=== PATIENT | female | born 2000 | race American Indian/Alaskan Native ===

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

== ENCOUNTER 2018-03-11 12:15 | Emergency (ER) | payer SELFPAY ==
[2018-03-11 13:24] LABS: Urine Blood 3+ (NEG); Urine Glucose NEGATIVE (NEG); Urine Protein NEGATIVE (NEG); Urine Specific Gravity 1.015 (1.005-1.030)
--- NOTE | 2018-03-11 13:44 | ER ---
Nurse's Notes [facility] Name: Masha Martinez Age: 17 yrs Sex: Female : 2000 Arrival Date: 03/11/2018 Time: 12:18 Bed 30 Private MD: Diagnosis: Other abnormal uterine and vaginal bleeding Presentation: 03/11 12:19 Presenting complaint: Patient states: on Saturday, i started spotting, yesterday it was a hj little heavier, reports abd pain; LMP- February 12, 2018; denies nausea and vomiting;. Transition of care: patient was not received from another setting of care. Onset of symptoms was March 11, 2018. Risk Assessment: Do you want to hurt yourself or someone else? Patient reports no desire to harm self or others. Initial Sepsis Screen: Does the patient meet any 2 criteria? No. Patient's initial sepsis screen is negative. Does the patient have a suspected source of infection? No. Patient's initial sepsis screen is negative. Care prior to arrival: None. 12:19 Method Of Arrival: Ambulatory 12:19 Acuity: SILVER 3 hj Triage Assessment: 12:21 General: Appears in no apparent distress. uncomfortable, Behavior is calm, cooperative, hj appropriate for age. Pain: Complains of pain in pelvis Pain currently is 8 out of 10 on a pain scale. : Reports vaginal bleeding that is with clots, light flow, pinkish discharge. 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 - Social history:: Smoking status: Patient/guardian denies using tobacco, Patient/guardian denies using alcohol. - Ebola Screening: : Patient negative for fever greater than or equal to 101.5 degrees Fahrenheit, and additional compatible Ebola Virus Disease symptoms Patient denies exposure to infectious person Patient denies travel to an Ebola-affected area in the 21 days before illness onset. Screenin:22 Abuse screen: Denies threats or abuse. Denies injuries from another. Nutritional hj screening: No deficits noted. Tuberculosis screening: No symptoms or risk factors identified. Fall Risk None identified. Assessment: 12:22 : hj 13:21 General: Appears in no apparent distress. comfortable, well groomed, well developed, tl3 well nourished, Behavior is calm, cooperative, appropriate for age. Pain: Denies pain. Neuro: Level of Consciousness is awake, alert, obeys commands, Oriented to person, place, time, situation, Appropriate for age. Cardiovascular: Patient's skin is warm and dry. Respiratory: Airway is patent Respiratory effort is even, unlabored, Respiratory pattern is regular, symmetrical, Breath sounds are clear bilaterally. GI: No deficits noted. No signs and/or symptoms were reported involving the gastrointestinal system. : Reports vaginal bleeding that is spotty, since Saturday. 13:21 EENT: No deficits noted. No signs and/or symptoms were reported regarding the EENT tl3 system. Derm: No deficits noted. No signs and/or symptoms reported regarding the dermatologic system. Musculoskeletal: No deficits noted. No signs and/or symptoms reported regarding the musculoskeletal system. 13:49 Reassessment: Patient appears in no apparent distress at this time. No changes from tl3 previously documented assessment. Patient and/or family updated on plan of care and expected duration. Pain level reassessed. Patient is alert, oriented x 3, equal unlabored respirations, skin warm/dry/pink. 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 Vital Signs: 12:22 BP 118 / 93; Pulse 85; Resp 18; Temp 98.4(TE); Pulse Ox 100% on R/A; Weight 66.68 kg; hj Height 5 ft. 0 in. (152.40 cm); Pain 8/10; 13:49 BP 120 / 80; Pulse 82; Resp 18; Pulse Ox 100% on R/A; tl3 12:22 Body Mass Index 28.71 (66.68 kg, 152.40 cm) ED Course: 12:18 Patient arrived in ED. hj 12:20 Triage completed. hj 12:22 Arm band placed on right wrist. hj 12:24 Patient has correct armband on for positive identification. Placed in gown. Bed in low hj position. Call light in reach. Side rails up X 1. 12:55 Elva Aguilar RN is Primary Nurse. tl3 12:58 A[facility] Baez [facility]. pm1 12:58 Darian Brownlee MD is Attending Physician. pm1 13:21 No provider procedures requiring assistance completed. Patient did not have IV access tl3 during this emergency room visit. Administered Medications: No medications were administered Outcome: 13:43 Discharge ordered by MD. pm1 13:49 Discharged to home ambulatory. tl3 13:49 Condition: good 13:49 Discharge instructions given to patient, Instructed on discharge instructions, follow up and referral plans. Demonstrated understanding of instructions, follow-up care. 13:51 Patient left the ED. tl3 Signatures: Kaveh Carpenter RN RN Aroldo Rutherford NP NETWORK RELAY TESTER pm1 Elva Aguilar RN RN tl3 Corrections: (The following items were deleted from the chart) 12:24 12:22 Pulse 85bpm; Resp 18bpm; Pulse Ox 100% RA; Temp 98.4F Temporal; 66.68 kg; Height hj 5 ft. 0 in.; BMI: 28.7; Pain 8/10; hj
--- NOTE | 2018-03-11 13:44 | EDPHYS ---
Physician Documentation [facility] Name: Masha Martinez Age: 17 yrs Sex: Female : 2000 Arrival Date: 03/11/2018 Time: 12:18 Bed 30 Private MD: ED Physician Darian Brownlee HPI: 03/11 13:42 This 17 yrs old Other Female presents to ER via Ambulatory with complaints of Vaginal pm1 Bleeding. 13:42 The patient presents with vaginal bleeding that is very light bleeding for the past 5 pm1 days that has not required the use of pads or tampons. Onset: The symptoms/episode began/occurred 5 day(s) ago. Modifying factors: The symptoms are alleviated by nothing, the symptoms are aggravated by nothing. Associated signs and symptoms: Pertinent negatives: diarrhea, dysuria, fever, nausea, vomiting. Severity of symptoms: in the emergency department the symptoms are unchanged. The patient is sexually active, does not use protection during intercourse, Patient with unprotected intercourse about 1 week ago and is coming to the emergency department with a request for STD testing. The patient has not experienced similar symptoms in the past. The patient has not recently seen a physician. 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 - Social history:: Smoking status: Patient/guardian denies using tobacco, Patient/guardian denies using alcohol. - Ebola Screening: : Patient negative for fever greater than or equal to 101.5 degrees Fahrenheit, and additional compatible Ebola Virus Disease symptoms Patient denies exposure to infectious person Patient denies travel to an Ebola-affected area in the 21 days before illness onset. ROS: 13:42 Positive for vaginal bleeding. pm1 13:42 Constitutional: Negative for fever, chills, and weight loss, Eyes: Negative for injury, pain, redness, and discharge, ENT: Negative for injury, pain, and discharge, Neck: Negative for injury, pain, and swelling, Cardiovascular: Negative for chest pain, palpitations, and edema, Respiratory: Negative for shortness of breath, cough, wheezing, and pleuritic chest pain, Abdomen/GI: Negative for abdominal pain, nausea, vomiting, diarrhea, and constipation, Back: Negative for injury and pain, MS/Extremity: Negative for injury and deformity, Skin: Negative for injury, rash, and discoloration. 13:42 Neuro: Negative for headache, weakness, numbness, tingling, and seizure. Exam: 13:42 Constitutional: This is a well developed, well nourished patient who is awake, alert, pm1 and in no acute distress. Head/Face: Normocephalic, atraumatic. Eyes: Pupils equal round and reactive to light, extra-ocular motions intact. Lids and lashes normal. Conjunctiva and sclera are non-icteric and not injected. Cornea within normal limits. Periorbital areas with no swelling, redness, or edema. ENT: Nares patent. No nasal discharge, no septal abnormalities noted. Tympanic membranes are normal and external auditory canals are clear. Oropharynx with no redness, swelling, or masses, exudates, or evidence of obstruction, uvula midline. Mucous membranes moist. Neck: Trachea midline, no thyromegaly or masses palpated, and no cervical lymphadenopathy. Supple, full range of motion without nuchal rigidity, or vertebral point tenderness. No Meningismus. Chest/axilla: Normal chest wall appearance and motion. Nontender with no deformity. No lesions are appreciated. Cardiovascular: Regular rate and rhythm with a normal S1 and S2. No gallops, murmurs, or rubs. No pulse deficits. Respiratory: Lungs have equal breath sounds bilaterally, clear to auscultation and percussion. No rales, rhonchi or wheezes noted. No increased work of breathing, no retractions or nasal flaring. Abdomen/GI: Soft, non-tender, with normal bowel sounds. No distension or tympany. No guarding or rebound. No evidence of tenderness throughout. Back: No spinal tenderness. No costovertebral tenderness. Full range of motion. Skin: Warm, dry with normal turgor. Normal color with no rashes, no lesions, and no evidence of cellulitis. MS/ Extremity: Pulses equal, no cyanosis. Neurovascular intact. Full, normal range of motion. 13:42 Neuro: Orientation: is normal, Motor: moves all fours. Vital Signs: 12:22 BP 118 / 93; Pulse 85; Resp 18; Temp 98.4(TE); Pulse Ox 100% on R/A; Weight 66.68 kg; hj Height 5 ft. 0 in. (152.40 cm); Pain 8/10; 13:49 BP 120 / 80; Pulse 82; Resp 18; Pulse Ox 100% on R/A; tl3 12:22 Body Mass Index 28.71 (66.68 kg, 152.40 cm) MDM: 12:58 Patient medically screened. pm1 13:42 Data reviewed: vital signs. Data interpreted: Pulse oximetry: on room air is 100 %. pm1 Interpretation: normal. 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 13:42 Counseling: I had a detailed discussion with the patient and/or guardian regarding: the pm1 historical points, exam findings, and any diagnostic results supporting the discharge/admit diagnosis, lab results, the need for outpatient follow up, to return to the emergency department if symptoms worsen or persist or if there are any questions or concerns that arise at home. 03/11 13:05 Order name: Urine Dipstick--Ancillary (enter results); Complete Time: 13:28 03/11 13:05 Order name: Urine --Ancillary (enter results); Complete Time: 13:28 03/11 12:24 Order name: Urine Dipstick-Ancillary (obtain specimen) 03/11 12:24 Order name: Urine Test (obtain specimen) 03/11 13:28 Order name: IV Saline Lock pm1 03/11 13:28 Order name: Labs collected and sent pm1 Administered Medications: No medications were administered Disposition: 03/12 06:55 Co-signature as Attending Physician, Darian Brownlee MD I agree with the assessment and jarad plan of care. Disposition: 03/11/18 13:43 Discharged to Home. Impression: Other abnormal uterine and vaginal bleeding. - Condition is Stable. - Discharge Instructions: Abnormal Uterine Bleeding. - Medication Reconciliation Form, Thank You Letter, Work release form form. - Follow up: Emergency Department; When: As needed; Reason: Worsening of condition. Follow up: Private Physician; When: 2 - 3 days; Reason: Recheck today's complaints, Continuance of care, Re-evaluation by your physician. - Problem is new. - Symptoms have improved. Signatures: Dispatcher [employer] EDMS Darian Brownlee MD MD cha Joaquin, Henry RN RN hj Aroldo Baez, FINANCE ADVISOR FINANCE ADVISOR pm1 Elva Aguilar, SENAIT RN tl3 Corrections: (The following items were deleted from the chart) 03/11 13:51 13:43 03/11/2018 13:43 Discharged to Home. Impression: Other abnormal uterine and tl3 vaginal bleeding. Condition is Stable. Forms are Medication Reconciliation Form, Thank You Letter, Antibiotic Education, Prescription Opioid Use. Follow up: Emergency Department; When: As needed; Reason: Worsening of condition. Follow up: Private Physician; When: 2 - 3 days; Reason: Recheck today's complaints, Continuance of care, Re-evaluation by your physician. Problem is new. Symptoms have improved. pm1
[2018-03-11 13:57] VITALS: TEMP 98.4; O2SAT 100
[2018-03-11 13:58] VITALS: BP 120/80
== END 2018-03-11 13:51 | disposition home or self-care (01) ==
LOC: ER 12:15
DX: N93.8 Other specified abnormal uterine and vaginal bleeding (principal)
CPT/HCPCS: 81003; 81025; 99281

== ENCOUNTER 2018-07-18 13:40 | Emergency (ER) | payer SELFPAY ==
--- OUTSIDE RECORDS SUMMARY | 2018-07-18 13:42 | XMS REPORT ---
:2000 [facility] Address [address] [place] [address] Dr. Gutierrez [address] [place] [address] Care Team Providers Name Role Phone Unavailable Unavailable Unavailable Problems This patient has no known problems. Allergies, Adverse Reactions, Alerts This patient has no known allergies or adverse reactions. Medications This patient has no known medications.
[2018-07-18 15:10] LABS: Urine Blood 1+ (NEG); Urine Glucose NEGATIVE (NEG); Urine Protein NEGATIVE (NEG); Urine Specific Gravity 1.015 (1.005-1.030); Urine pH 7.5 (5.0-7.0)
[2018-07-18 15:20] LABS: Urine Specific Gravity 1.015 (1.005-1.030)
--- NOTE | 2018-07-18 16:02 | RAD REPORT ---
EXAM DESCRIPTION: US - Transvaginal Study Probe - 07/18/2018 3:45 pm CLINICAL HISTORY: Pelvic pain COMPARISON: Ultrasound March 2017 TECHNIQUE: Endovaginal sonography was performed. FINDINGS: Both ovaries are identified. Small follicles are seen with no dominant solid or cystic ova marbella or adnexal finding. Doppler evaluation shows good blood flow within the ovaries. No fluid or blo od in the cul-de-sac. No fallopian tube dilatation. Endometrium is up to 8 mm in thickness with no endometrial mass, polyp or abnormal fluid collection i dentifiable. No myometrial mass. Uterus is 7.8 x 3.8 x 5.2 cm with retroflexed configuration. IMPRESSION: Endovaginal pelvic ultrasound as detailed shows no significant or suspicious finding.
--- NOTE | 2018-07-18 16:37 | EDPHYS ---
Physician Documentation [facility] Name: Masha Martinez Age: 18 yrs Sex: Female : 2000 Arrival Date: 07/18/2018 Time: 13:43 Bed 24 Private MD: ED Physician Lex Kaur HPI: 07/18 16:34 This 18 yrs old Other Female presents to ER via Ambulatory with complaints of Low kb Abdominal Pain. 16:34 The patient presents with abdominal pain in the lower abdomen. Onset: The kb symptoms/episode began/occurred 1 month(s) ago. The symptoms do not radiate. Associated signs and symptoms: none. The symptoms are described as achy, constant, tightness. Modifying factors: The symptoms are alleviated by nothing, the symptoms are aggravated by nothing. Severity of pain: At its worst the pain was mild moderate in the emergency department the pain is unchanged. The patient has not experienced similar symptoms in the past. The patient has not recently seen a physician. "The area where my uterus is has been hurting for a month.". Historical: - Allergies: 13:46 No Known Allergies; sv - PMHx: 13:46 None; sv - PSHx: 13:46 None; sv - Immunization history:: Flu vaccine is not up to date. - Social history:: Smoking status: Patient/guardian denies using tobacco. - Ebola Screening: : No symptoms or risks identified at this time. ROS: 16:35 Constitutional: Negative for fever, chills, and weight loss, ENT: Negative for injury, kb pain, and discharge, Neck: Negative for injury, pain, and swelling, Cardiovascular: Negative for chest pain, palpitations, and edema, Respiratory: Negative for shortness of breath, cough, wheezing, and pleuritic chest pain, Back: Negative for injury and pain, : Negative for injury, bleeding, discharge, and swelling, MS/Extremity: Negative for injury and deformity, Skin: Negative for injury, rash, and discoloration, Neuro: Negative for headache, weakness, numbness, tingling, and seizure. 16:35 Abdomen/GI: Positive for abdominal pain. Exam: 16:36 Constitutional: This is a well developed, well nourished patient who is awake, alert, kb and in no acute distress. Head/Face: Normocephalic, atraumatic. ENT: Nares patent. No nasal discharge, no septal abnormalities noted. Tympanic membranes are normal and external auditory canals are clear. Oropharynx with no redness, swelling, or masses, exudates, or evidence of obstruction, uvula midline. Mucous membranes moist. Neck: Trachea midline, no thyromegaly or masses palpated, and no cervical lymphadenopathy. Supple, full range of motion without nuchal rigidity, or vertebral point tenderness. No Meningismus. Chest/axilla: Normal chest wall appearance and motion. Nontender with no deformity. No lesions are appreciated. Cardiovascular: Regular rate and rhythm with a normal S1 and S2. No gallops, murmurs, or rubs. Normal PMI, no JVD. No pulse deficits. Respiratory: Lungs have equal breath sounds bilaterally, clear to auscultation and percussion. No rales, rhonchi or wheezes noted. No increased work of breathing, no retractions or nasal flaring. Back: No spinal tenderness. No costovertebral tenderness. Full range of motion. Skin: Warm, dry with normal turgor. Normal color with no rashes, no lesions, and no evidence of cellulitis. MS/ Extremity: Pulses equal, no cyanosis. Neurovascular intact. Full, normal range of motion. Neuro: Awake and alert, GCS 15, oriented to person, place, time, and situation. Cranial nerves II-XII grossly intact. Motor strength 5/5 in all extremities. Sensory grossly intact. Cerebellar exam normal. Normal gait. 16:36 Abdomen/GI: Inspection: abdomen appears normal, Bowel sounds: normal, in all quadrants, Palpation: soft, in all quadrants, mild abdominal tenderness, in the right lower quadrant and left lower quadrant, moderate abdominal tenderness, in the suprapubic area. Vital Signs: 13:46 BP 141 / 85; Pulse 95; Resp 18; Temp 98.4; Pulse Ox 100% ; Weight 68.04 kg; Height 5 sv ft. 0 in. (152.40 cm); Pain 7/10; 16:48 BP 113 / 84; Pulse 79; Resp 18; Pulse Ox 100% on R/A; tl3 13:46 Body Mass Index 29.29 (68.04 kg, 152.40 cm) sv MDM: 15:04 Patient medically screened. kb 16:35 Data reviewed: vital signs, nurses notes. Data interpreted: Pulse oximetry: on room air kb is 100 %. Interpretation: normal. Counseling: I had a detailed discussion with the patient and/or guardian regarding: the historical points, exam findings, and any diagnostic results supporting the discharge/admit diagnosis, lab results, radiology results, the need for outpatient follow up, an OB/Gyne specialist, to return to the emergency department if symptoms worsen or persist or if there are any questions or concerns that arise at home. 07/18 14:52 Order name: Urine Dipstick-Ancillary; Complete Time: 15:15 EDMA 07/18 14:52 Order name: Urine --Ancillary; Complete Time: 15:29 EDMA 07/18 15:15 Order name: US Transvaginal Study (Probe); Complete Time: 16:13 kb Administered Medications: No medications were administered Disposition: 17:48 Co-signature as Attending Physician, Lex Kaur MD I agree with the assessment and rn plan of care. Disposition: 07/18/18 16:36 Discharged to Home. Impression: Abdominal and pelvic pain. - Condition is Stable. - Discharge Instructions: Pelvic Pain, Female, [id number], Abdominal Pain, Adult, [id number]. - Medication Reconciliation Form, Thank You Letter, Antibiotic Education, Prescription Opioid Use form. - Follow up: Emergency Department; When: As needed; Reason: Worsening of condition. Follow up: Private Physician; When: 2 - 3 days; Reason: Recheck today's complaints, Continuance of care, Re-evaluation by your physician. Signatures: Dispatcher [employer] [facility] Trina Cancino, NANOSYSTEMS ENGINEER-C NANOSYSTEMS ENGINEER-CkMandy Roth RN RN sv Nieto, Roman, MD MD rn Lowrey, Tammy, RN RN tl3 Corrections: (The following items were deleted from the chart) 16:51 16:36 07/18/2018 16:36 Discharged to Home. Impression: Abdominal and pelvic pain. tl3 Condition is Stable. Forms are Medication Reconciliation Form, Thank You Letter, Antibiotic Education, Prescription Opioid Use. Follow up: Emergency Department; When: As needed; Reason: Worsening of condition. Follow up: Private Physician; When: 2 - 3 days; Reason: Recheck today's complaints, Continuance of care, Re-evaluation by your physician. kb
--- NOTE | 2018-07-18 16:37 | ER ---
Nurse's Notes [facility] Name: Masha Martinez Age: 18 yrs Sex: Female : 2000 Arrival Date: 07/18/2018 Time: 13:43 Bed 24 Private MD: Diagnosis: Abdominal and pelvic pain Presentation: 07/18 13:44 Presenting complaint: Patient states: RLQ pain/cramping, light red vaginal bleeding sv started today, "Tight feeling, maybe swollen." Denies n/v/d/constipation. Transition of care: patient was not received from another setting of care. Onset of symptoms was May 2018. Care prior to arrival: None. 13:44 Method Of Arrival: Ambulatory sv 13:44 Acuity: SILVER 3 sv Triage Assessment: 13:44 General: Appears in no apparent distress. uncomfortable, Behavior is calm, cooperative, sv appropriate for age. Pain: Complains of pain in right lower quadrant Pain currently is 7 out of 10 on a pain scale. Neuro: Level of Consciousness is awake, alert, obeys commands, Oriented to person, place, time, situation, Moves all extremities. Full function. Respiratory: Respiratory effort is even, unlabored, Respiratory pattern is regular, symmetrical. Historical: - Allergies: 13:46 No Known Allergies; sv - PMHx: 13:46 None; sv - PSHx: 13:46 None; sv - Immunization history:: Flu vaccine is not up to date. - Social history:: Smoking status: Patient/guardian denies using tobacco. - Ebola Screening: : No symptoms or risks identified at this time. Vital Signs: 13:46 BP 141 / 85; Pulse 95; Resp 18; Temp 98.4; Pulse Ox 100% ; Weight 68.04 kg; Height 5 sv ft. 0 in. (152.40 cm); Pain 7/10; 16:48 BP 113 / 84; Pulse 79; Resp 18; Pulse Ox 100% on R/A; tl3 13:46 Body Mass Index 29.29 (68.04 kg, 152.40 cm) sv ED Course: 13:43 Patient arrived in ED. rg4 13:46 Triage completed. sv 13:46 Arm band placed on Patient placed in waiting room, Patient notified of wait time. sv 15:04 Trina Cancino FNP-C is PHCP. kb 15:04 Lex Kaur MD is Attending Physician. kb 15:44 US Transvaginal Study (Probe) In Process Unspecified. EDMS 15:44 Ultrasound completed. Patient tolerated well. sg3 16:47 No provider procedures requiring assistance completed. Patient did not have IV access tl3 during this emergency room visit. Administered Medications: No medications were administered Outcome: 16:36 Discharge ordered by MD. kb 16:48 Discharged to home ambulatory. tl3 16:48 Condition: stable 16:48 Discharge instructions given to patient, Instructed on discharge instructions, follow up and referral plans. Demonstrated understanding of instructions, follow-up care. 16:51 Patient left the ED. tl3 Signatures: Dispatcher [employer] EDMS Trina Cancino, DISASTER RECOVERY ANALYST-C DISASTER RECOVERY ANALYST-Mandy Sahni, RN RN Odette Hickey 4 Yoanna Schmidt sg3 Elva Aguilar, RN RN tl3
[2018-07-18 17:03] VITALS: TEMP 98.4; O2SAT 100
[2018-07-18 17:05] VITALS: BP 113/84
== END 2018-07-18 16:51 | disposition home or self-care (01) ==
LOC: ER 13:40
DX: R10.2 Pelvic and perineal pain (principal)
CPT/HCPCS: 76830; 81003; 81025

== ENCOUNTER 2018-12-18 12:00 | Emergency (ER) | payer SELFPAY ==
[2018-12-18 13:36] LABS: Absolute Lymphocytes (CBC) 1.4 K/uL (0.7-4.9); Basophils % 0.8 % (0-1.3); Eosinophils % 2.9 % (0-4.4); Hematocrit 37.3 % (36.0-45.0); Lymphocytes % 24.7 % (15.3-44.8); MPV 8.4 fL (7.6-11.3); Monocytes % 10.5 % (3.3-12.3)
[2018-12-18] MEDS ORDERED: FAMOTIDINE 20 MG/2 ML VIAL IV ONE (13:44)
[2018-12-18] MEDS ORDERED: ONDANSETRON 4 MG/2 ML VIAL ONE (13:44)
[2018-12-18 13:52] LABS: ALT/SGPT 15 U/L (12-78); AST/SGOT 12 U/L (15-37); Albumin 3.9 g/dL (3.4-5.0); Alkaline Phosphatase 59 U/L (45-117); BUN Blood Urea Nitrogen 9 mg/dL (7-18); Bicarbonate 23 mmol/L (21-32); Bilirubin Direct 0.1 mg/dL (0-0.2); Bilirubin Total 0.4 mg/dL (0.2-1.0); Glucose Level 102 mg/dL (74-106); Lipase 108 U/L (73-393); Potassium 3.3 mmol/L (3.5-5.1); Protein, Total 7.6 g/dL (6.4-8.2); Sodium Level 142 mmol/L (136-145)
[2018-12-18 14:03] LABS: Urine Blood 2+ (NEG); Urine Glucose NEGATIVE (NEG); Urine Protein NEGATIVE (NEG); Urine Specific Gravity 1.015 (1.005-1.030)
[2018-12-18] MEDS ORDERED: CEFTRIAXONE/SWI 1gm 1 GM/10 ML SYR ONE (16:26)
[2018-12-18] MEDS ORDERED: LIDOCAINE VISCOUS 2% SOLN 15 ML UDC ONE (16:26)
[2018-12-18] MEDS ORDERED: MAGNE/ALUM HYDROXD 30 ML UCUP ONE (16:26)
--- NOTE | 2018-12-18 18:43 | ER ---
Nurse's Notes [facility] Name: Masha Martinez Age: 18 yrs Sex: Female : 2000 Arrival Date: 12/18/2018 Time: 12:01 Bed 27 Private MD: Diagnosis: Unspecified abdominal pain;Urinary tract infection, site not specified Presentation: 12/18 12:13 Presenting complaint: Patient states: "yesterday morning I started noticing that my aj1 stomach felt like there was something burning in it. I didn't really eat much and then around noon I tried to drink juice and it still felt like that. After dinner I started feeling really bad and I couldn't even swallow my nausea medicine because I was so nauseous". Transition of care: patient was not received from another setting of care. Onset of symptoms was December 17, 2018. Risk Assessment: Do you want to hurt yourself or someone else? Patient reports no desire to harm self or others. Initial Sepsis Screen: Does the patient meet any 2 criteria? No. Patient's initial sepsis screen is negative. Does the patient have a suspected source of infection? No. Patient's initial sepsis screen is negative. Care prior to arrival: None. 12:13 Method Of Arrival: Ambulatory aj1 12:13 Acuity: SILVER 3 aj1 Triage Assessment: 12:15 General: Appears in no apparent distress. uncomfortable, Behavior is calm, cooperative, aj1 appropriate for age. Pain: Complains of pain in epigastric area Pain currently is 6 out of 10 on a pain scale. Neuro: Level of Consciousness is awake, alert, obeys commands. Cardiovascular: Patient's skin is warm and dry. Respiratory: Airway is patent Respiratory effort is even, unlabored, Respiratory pattern is. GI: Reports upper abdominal pain, nausea. 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 - Social history:: Smoking status: Patient/guardian denies using tobacco. - Ebola Screening: : Patient denies travel to an Ebola-affected area in the 21 days before illness onset. Screenin:14 Abuse screen: Denies threats or abuse. Denies injuries from another. Nutritional mg2 screening: No deficits noted. Tuberculosis screening: No symptoms or risk factors identified. Fall Risk IV access (20 points). Assessment: 13:13 General: Appears in no apparent distress. comfortable, Behavior is calm, cooperative. mg2 Pain: Complains of pain in abdomen and epigastric area. Neuro: Level of Consciousness is awake, alert, obeys commands, Oriented to person, place, time, situation. Cardiovascular: Capillary refill < 3 seconds Patient's skin is warm and dry. Respiratory: Airway is patent Respiratory effort is even, unlabored, Respiratory pattern is regular, symmetrical. GI: Bowel sounds present X 4 quads. Abd is soft and non tender Reports lower abdominal pain, upper abdominal pain, epigastric pain, nausea. : No signs and/or symptoms were reported regarding the genitourinary system. EENT: No signs and/or symptoms were reported regarding the EENT system. Derm: Skin is intact, is healthy with good turgor, Skin is pink, warm \\T\\ dry. normal. Musculoskeletal: Circulation, motion, and sensation intact. Capillary refill < 3 seconds. 14:57 Reassessment: Patient appears in no apparent distress at this time. Patient and/or mg2 family updated on plan of care and expected duration. Pain level reassessed. Patient is alert, oriented x 3, equal unlabored respirations, skin warm/dry/pink. Patient states feeling better. Patient states symptoms have improved. 16:37 Reassessment: Patient denies pain at this time. mg2 Vital Signs: 12:15 BP 126 / 79; Pulse 68; Resp 16; Temp 97.7; Pulse Ox 100% on R/A; Weight 71.21 kg (R); aj1 Height 5 ft. 0 in. (152.40 cm) (R); 13:53 BP 113 / 72; Pulse 73; Resp 18; Pulse Ox 95% on R/A; mg2 15:01 BP 96 / 60; Pulse 62; Resp 18; Pulse Ox 100% on R/A; Pain 0/10; mg2 16:38 BP 110 / 70; Pulse 65; Resp 18; Temp 98.2; Pulse Ox 100% on R/A; Pain 0/10; mg2 12:15 Body Mass Index 30.66 (71.21 kg, 152.40 cm) aj1 ED Course: 12:01 Patient arrived in ED. as 12:15 Triage completed. aj1 12:16 Arm band placed on Patient placed in waiting room, Patient notified of wait time. aj1 13:08 Grabiel Franco RN is Primary Nurse. mg2 13:11 Aroldo Baez NP is PHCP. pm1 13:11 Júnior Pedro MD is Attending Physician. pm1 13:30 Inserted saline lock: 20 gauge in right forearm, using aseptic technique. Blood mg2 collected. 13:54 Patient has correct armband on for positive identification. Pulse ox on. NIBP on. mg2 14:57 No provider procedures requiring assistance completed. mg2 16:38 IV discontinued, intact, bleeding controlled, No redness/swelling at site. Pressure mg2 dressing applied. Administered Medications: 13:41 Drug: Zofran 4 mg Route: IVP; Site: right forearm; mg2 14:58 Follow up: Response: No adverse reaction; Marked relief of symptoms; Nausea is decreasedmg2 13:42 Drug: Pepcid 20 mg Route: IVP; Site: right forearm; mg2 14:58 Follow up: Response: No adverse reaction; Marked relief of symptoms; Pain is decreased mg2 16:16 Drug: Rocephin 1 grams Route: IV; Rate: calculated rate; Site: right forearm; mg2 16:38 Follow up: Response: No adverse reaction; IV Status: Completed infusion mg2 16:16 Drug: GI Cocktail without - (Maalox Suspension 30 ml, Lidocaine Liquid 2 % 15 mg2 ml) Route: PO; 16:37 Follow up: Response: No adverse reaction; Marked relief of symptoms mg2 Outcome: 16:04 Discharge ordered by . pm1 16:38 Discharged to home ambulatory. mg2 16:38 Condition: stable 16:38 Discharge instructions given to patient, Instructed on discharge instructions, follow up and referral plans. medication usage, Demonstrated understanding of instructions, follow-up care, medications, Prescriptions given X 3. 16:39 Patient left the ED. mg2 Signatures: Grace Heredia RN RN aj1 Gudelia Barahona as Aroldo Baez NP [employer] pm1 Grabiel Franco RN RN mg2 Corrections: (The following items were deleted from the chart) 13:53 13:53 BP 113 / 72; Pulse 104bpm; Resp 18bpm; Pulse Ox 95% RA; mg2 mg2
--- NOTE | 2018-12-18 18:43 | EDPHYS ---
Physician Documentation [facility] Name: Masha Martinez Age: 18 yrs Sex: Female : 2000 Arrival Date: 12/18/2018 Time: 12:01 Bed 27 Private MD: ED Physician Júnior Pedro HPI: 12/18 14:25 This 18 yrs old Other Female presents to ER via Ambulatory with complaints of Abdominal pm1 Pain, Nausea. 14:25 The patient presents with abdominal pain in the epigastric area. Onset: The pm1 symptoms/episode began/occurred yesterday morning. The symptoms do not radiate. Associated signs and symptoms: Pertinent positives: nausea and vomiting, Pertinent negatives: constipation, diarrhea, dysuria, fever. The symptoms are described as burning. Modifying factors: The symptoms are alleviated by nothing, the symptoms are aggravated by food. Severity of pain: in the emergency department the pain is unchanged. The patient has not experienced similar symptoms in the past. The patient has not recently seen a physician. MOLDER MEAT: 12:15 LMP 12/08/2018 aj1 Historical: - Allergies: 12:15 No Known Allergies; aj1 - Home Meds: 12:15 None [Active]; aj1 - PMHx: 12:15 None; aj1 - PSHx: 12:15 None; aj1 - Immunization history:: Flu vaccine is not up to date. - Social history:: Smoking status: Patient/guardian denies using tobacco. - Ebola Screening: : Patient denies travel to an Ebola-affected area in the 21 days before illness onset. ROS: 14:25 Constitutional: Negative for fever, chills, and weight loss, Eyes: Negative for injury, pm1 pain, redness, and discharge, ENT: Negative for injury, pain, and discharge, Neck: Negative for injury, pain, and swelling, Cardiovascular: Negative for chest pain, palpitations, and edema, Respiratory: Negative for shortness of breath, cough, wheezing, and pleuritic chest pain. 14:25 Back: Negative for injury and pain, : Negative for injury, bleeding, discharge, and swelling, MS/Extremity: Negative for injury and deformity, Skin: Negative for injury, rash, and discoloration, Neuro: Negative for headache, weakness, numbness, tingling, and seizure. 14:25 Abdomen/GI: Positive for abdominal pain, nausea and vomiting, Negative for diarrhea, constipation. Exam: 14:25 Constitutional: This is a well developed, well nourished patient who is awake, alert, pm1 and in no acute distress. Head/Face: Normocephalic, atraumatic. Eyes: Pupils equal round and reactive to light, extra-ocular motions intact. Lids and lashes normal. Conjunctiva and sclera are non-icteric and not injected. Cornea within normal limits. Periorbital areas with no swelling, redness, or edema. ENT: Nares patent. No nasal discharge, no septal abnormalities noted. Tympanic membranes are normal and external auditory canals are clear. Oropharynx with no redness, swelling, or masses, exudates, or evidence of obstruction, uvula midline. Mucous membranes moist. Neck: Trachea midline, no thyromegaly or masses palpated, and no cervical lymphadenopathy. Supple, full range of motion without nuchal rigidity, or vertebral point tenderness. No Meningismus. Chest/axilla: Normal chest wall appearance and motion. Nontender with no deformity. No lesions are appreciated. Cardiovascular: Regular rate and rhythm with a normal S1 and S2. No gallops, murmurs, or rubs. Normal PMI, no JVD. No pulse deficits. Respiratory: Lungs have equal breath sounds bilaterally, clear to auscultation and percussion. No rales, rhonchi or wheezes noted. No increased work of breathing, no retractions or nasal flaring. Abdomen/GI: Soft, non-tender, with normal bowel sounds. No distension or tympany. No guarding or rebound. No evidence of tenderness throughout. Back: No spinal tenderness. No costovertebral tenderness. Full range of motion. Skin: Warm, dry with normal turgor. Normal color with no rashes, no lesions, and no evidence of cellulitis. MS/ Extremity: Pulses equal, no cyanosis. Neurovascular intact. Full, normal range of motion. 14:25 Neuro: Orientation: is normal, Motor: is normal, moves all fours, Sensation: is normal, no obvious gross deficits, Gait: is steady, at a normal pace, without difficulty. Vital Signs: 12:15 BP 126 / 79; Pulse 68; Resp 16; Temp 97.7; Pulse Ox 100% on R/A; Weight 71.21 kg (R); aj1 Height 5 ft. 0 in. (152.40 cm) (R); 13:53 BP 113 / 72; Pulse 73; Resp 18; Pulse Ox 95% on R/A; mg2 15:01 BP 96 / 60; Pulse 62; Resp 18; Pulse Ox 100% on R/A; Pain 0/10; mg2 16:38 BP 110 / 70; Pulse 65; Resp 18; Temp 98.2; Pulse Ox 100% on R/A; Pain 0/10; mg2 12:15 Body Mass Index 30.66 (71.21 kg, 152.40 cm) aj1 MDM: 13:13 Patient medically screened. pm1 16:04 Data reviewed: vital signs. Data interpreted: Pulse oximetry: on room air is 100 %. pm1 Interpretation: normal. Counseling: I had a detailed discussion with the patient and/or guardian regarding: the historical points, exam findings, and any diagnostic results supporting the discharge/admit diagnosis, lab results, the need for outpatient follow up, to return to the emergency department if symptoms worsen or persist or if there are any questions or concerns that arise at home. 17:05 ED course: Patient's abdominal pain resolved with GI Cocktail. Patient ready to go pm1 home, because she wants to go home and eat. 12/18 13:09 Order name: Basic Metabolic Panel; Complete Time: 14:25 mg2 12/18 13:09 Order name: CBC with Diff; Complete Time: 14:25 mg2 12/18 13:09 Order name: Creatinine for Radiology; Complete Time: 14:25 mg2 12/18 13:09 Order name: Hepatic Function; Complete Time: 14:25 mg2 12/18 13:09 Order name: Lipase; Complete Time: 14:25 mg2 12/18 13:53 Order name: Urine Dipstick--Ancillary (enter results) eb 12/18 13:09 Order name: IV Saline Lock; Complete Time: 13:42 mg2 12/18 13:09 Order name: Labs collected and sent; Complete Time: 13:42 mg2 12/18 13:53 Order name: Urine --Ancillary (enter results) eb 12/18 13:09 Order name: Urine Dipstick-Ancillary (obtain specimen); Complete Time: 13:42 mg2 12/18 13:19 Order name: Urine Test (obtain specimen); Complete Time: 13:42 pm1 Administered Medications: 13:41 Drug: Zofran 4 mg Route: IVP; Site: right forearm; mg2 14:58 Follow up: Response: No adverse reaction; Marked relief of symptoms; Nausea is decreasedmg2 13:42 Drug: Pepcid 20 mg Route: IVP; Site: right forearm; mg2 14:58 Follow up: Response: No adverse reaction; Marked relief of symptoms; Pain is decreased mg2 16:16 Drug: Rocephin 1 grams Route: IV; Rate: calculated rate; Site: right forearm; mg2 16:38 Follow up: Response: No adverse reaction; IV Status: Completed infusion mg2 16:16 Drug: GI Cocktail without - (Maalox Suspension 30 ml, Lidocaine Liquid 2 % 15 mg2 ml) Route: PO; 16:37 Follow up: Response: No adverse reaction; Marked relief of symptoms mg2 Disposition: 12/19 13:46 Co-signature as Attending Physician, Júnior Pedro MD I agree with the assessment and kdr plan of care. Disposition: 12/18/18 16:04 Discharged to Home. Impression: Unspecified abdominal pain, Urinary tract infection, site not specified. - Condition is Stable. - Discharge Instructions: Abdominal Pain, Adult, Urinary Tract Infection, Adult. - Prescriptions for Pepcid 20 mg Oral Tablet - take 1 tablet by ORAL route every 12 hours for 10 days; 20 tablet. Zofran 4 mg Oral Tablet - take 1 tablet by ORAL route every 12 hours As needed; 20 tablet. Bactrim DS 800- 160 mg Oral Tablet - take 1 tablet by ORAL route every 12 hours for 10 days; 20 tablet. - Work release form, Medication Reconciliation Form, Thank You Letter, Antibiotic Education, Prescription Opioid Use form. - Follow up: Emergency Department; When: As needed; Reason: Worsening of condition. Follow up: Private Physician; When: 2 - 3 days; Reason: Recheck today's complaints, Continuance of care, Re-evaluation by your physician. - Problem is new. - Symptoms have improved. Signatures: Dispatcher [employer] EDMS Grace Heredia RN RN aj1 Júnior Pedro MD MD kdr Aroldo Baez NP [employer] pm1 Grabiel Franco RN RN mg2 Corrections: (The following items were deleted from the chart) 12/18 16:39 16:04 12/18/2018 16:04 Discharged to Home. Impression: Unspecified abdominal pain; mg2 Urinary tract infection, site not specified. Condition is Stable. Forms are Medication Reconciliation Form, Thank You Letter, Antibiotic Education, Prescription Opioid Use. Follow up: Emergency Department; When: As needed; Reason: Worsening of condition. Follow up: Private Physician; When: 2 - 3 days; Reason: Recheck today's complaints, Continuance of care, Re-evaluation by your physician. Problem is new. Symptoms have improved. pm1
[2018-12-18 20:10] VITALS: O2SAT 100
[2018-12-18 20:20] VITALS: BP 110/70; TEMP 98.2
== END 2018-12-18 16:39 | disposition home or self-care (01) ==
LOC: ER 12:00
DX: N39.0 Urinary tract infection, site not specified (principal)
CPT/HCPCS: 36415; 80048; 80076; 81003; 81025; 83690; 85025; 96365; 96375; 99284; J0696; J2405

== ENCOUNTER 2019-02-10 21:22 | Emergency (ER) | payer OTHER, SELFPAY ==
--- OUTSIDE RECORDS SUMMARY | 2019-02-10 21:24 | XMS REPORT | Summary of Care ---
:2000 Author Organization [facility] Address [address] [place] [address] Care Team Providers Name Role Phone Kimberly Hodges SARAH Primary Care Provider Reason for Visit Reason Comments Rx Concern/Question pt needs something for nausea Encounter Details Date Type Department Care Team Description 01/28/2019 Telephone [facility]- Kimberly Hodges Rx Concern/ Question JUD Camarillo (pt needs something [address] for nausea) [facility] A [id number] [place], [place] [id number] Allergies No Known Allergiesdocumented as of this encounter (statuses as of 01/28/2019) Medications No known medicationsdocumented as of this encounter (statuses as of 01/28/2019) Active Problems Problem Noted Date Supervision of high-risk 01/15/2019 Obesity in 01/15/2019 Estimated Date of Delivery Comments Yes 09/16/2019 Based on last menstrual period of 12/10/2018 (Approximate) documented as of this encounter (statuses as of 01/28/2019) Social History Tobacco Use Types Packs/Day Years Used Date Never Smoker Smokeless Tobacco: Never Used Alcohol Use Drinks/Week oz/Week Comments Not Currently Estimated Date of Delivery Comments Yes 09/16/2019 Based on last menstrual period of 12/10/2018 (Approximate) Sex Assigned at Date Recorded Not on file Job Start Date Occupation Industry Not on file Not on file Not on file Travel History Travel Start Travel End No recent travel history available. documented as of this encounter Last Filed Vital Signs Not on filedocumented in this encounter Plan of Treatment Date Type Specialty Care Team Description 02/13/2019 Routine Visit [facility] [address] [place] [address] [phone] 03/03/2019 Glue Wheel Operator Visit Maternal Medicine 03/03/2019 Glue Wheel Operator Visit [facility], [facility] Health Maintenance Due Date Last Done Comments MENINGOCOCCAL B VACCINES (1 of 2 - 2008 Risk Bexsero 2-dose series) HPV VACCINES (1 - Female 3-dose 2013 series) DTaP,Tdap,and Td Vaccines (1 - 2017 Tdap) INFLUENZA VACCINE 03/01/2019 CHLAMYDIA SCREENING 01/16/2020 01/15/2019 MENINGOCOCCAL VACCINE Aged Out No longer eligible based on patient's age to complete this topic PNEUMOCOCCAL 0-64 YEARS COMBINED Aged Out No longer eligible based on SERIES patient's age to complete this topic documented as of this encounter Results Not on filedocumented in this encounter Insurance Payer Benefit Plan Subscriber ID Effective Phone Address Type / Group Dates CHERAW THAI HARRINGTON [id number] 2018-Pres HMO/PPO/POS HEALTHCARE ent MEDICAID MEDICAID PENDING 2019-Pre [address] [place] [address] Pending [place] [address] documented as of this encounter
--- OUTSIDE RECORDS SUMMARY | 2019-02-10 21:24 | XMS REPORT | Summary of Care ---
:2000 Author Organization [facility] Address [address] [place] [address] Care Team Providers Name Role Phone Kimberly Hodges SARAH Primary Care Provider Reason for Visit Reason Comments Rx Concern/Question needs something for nausea Encounter Details Date Type Department Care Team Description 02/09/2019 Telephone [facility]- Kimberly Hodges Rx Concern/ Question JUD Camarillo (needs something for [address] nausea) [place], [place] [address] [place], [place] [id number] Allergies No Known Allergiesdocumented as of this encounter (statuses as of 02/09/2019) Medications Medication Sig Dispensed Refills Start Date End Date Status proMETHazine 25 mg Take 1 tablet by 30 tablet 3 02/09/2019 Active tabletIndications: mouth every 4 Nausea and vomiting (four) hours as during prior needed for Nausea to 22 weeks gestation and Vomiting (N/V). documented as of this encounter (statuses as of 02/09/2019) Active Problems Problem Noted Date Supervision of high-risk 01/15/2019 Obesity in 01/15/2019 Estimated Date of Delivery Comments Yes 09/16/2019 Based on last menstrual period of 12/10/2018 (Approximate) documented as of this encounter (statuses as of 02/09/2019) Social History Tobacco Use Types Packs/Day Years [...] 02/13/2019 Routine Visit [facility] Kimberly Hodges, CNP [address] [place] [address] [phone] 03/03/2019 Promotion Specialist Visit Maternal Medicine 03/03/2019 Promotion Specialist Visit [facility] Lab, [facility] Health Maintenance Due Date Last Done [...] Results Not on filedocumented in this encounter Visit Diagnoses Diagnosis Nausea and vomiting during prior to 22 weeks gestation - Primary documented in this encounter Insurance Payer Benefit Plan Subscriber ID Effective Phone Address Type / Group Dates BETHANY THAI HARRINGTON [id number] 2018-Pres HMO/PPO/POS HEALTHCARE ent MEDICAID MEDICAID PENDING 2019-Pre [address] [place] [address] Pending P[place]ING [place] [address] documented as of this encounter
--- OUTSIDE RECORDS SUMMARY | 2019-02-10 21:24 | XMS REPORT ---
:2000 [facility] Address [address] [place] [address] Care Team Providers Name Role Phone Unavailable Unavailable Unavailable Problems This patient has no known problems. Allergies, Adverse Reactions, Alerts This patient has no known allergies or adverse reactions. Medications This patient has no known medications.
[2019-02-10] MEDS ORDERED: SUCRALFATE 1 GM TABLET ONE (21:50)
[2019-02-10 22:23] LABS: Urine Blood TRACE (NEG); Urine Glucose NEGATIVE (NEG); Urine Protein 1+ (NEG); Urine Specific Gravity 1.025 (1.005-1.030)
[2019-02-10] MEDS ORDERED: NA CHLORIDE 0.9% 1,000 ML ONE (22:36)
[2019-02-10 22:51] LABS: Urine Bacteria 20-50 /HPF (<20); Urine Culture Reflex Order NOT NEEDED; Urine RBC <5 /HPF (NONE SEEN)
[2019-02-10] MEDS ORDERED: CEFTRIAXONE/SWI 1gm 1 GM/10 ML SYR ONE (23:06)
--- NOTE | 2019-02-10 23:46 | ER ---
Nurse's Notes [facility] Name: Masha Martinez Age: 18 yrs Sex: Female : 2000 Arrival Date: 02/10/2019 Time: 21:25 Bed 24 Private MD: Diagnosis: state;Urinary tract infection, site not specified Presentation: 02/10 21:30 Presenting complaint: Patient states: "for the past 3 days I have had trouble keeping jd3 food down and today I started having problems keeping water down and being nauseous. I am 9 weeks . I was given promethazine, but I threw that up and I haven't taken it again since.". Transition of care: patient was not received from another setting of care. Onset of symptoms was February 10, 2019. Risk Assessment: Do you want to hurt yourself or someone else? Patient reports no desire to harm self or others. Initial Sepsis Screen: Does the patient meet any 2 criteria? No. Patient's initial sepsis screen is negative. Does the patient have a suspected source of infection? No. Patient's initial sepsis screen is negative. Care prior to arrival: None. 21:30 Method Of Arrival: Ambulatory jd3 21:30 Acuity: SILVER 3 jd3 Historical: - Allergies: 21:32 No Known Allergies; jd3 - Home Meds: 21:32 None [Active]; jd3 - PMHx: 21:32 None; jd3 - PSHx: 21:32 None; jd3 - Immunization history:: Adult Immunizations up to date. - Social history:: Smoking status: Patient/guardian denies using tobacco. - Ebola Screening: : Patient negative for fever greater than or equal to 101.5 degrees Fahrenheit, and additional compatible Ebola Virus Disease symptoms. Screenin:35 Abuse screen: Denies threats or abuse. Denies injuries from another. Nutritional ca1 screening: No deficits noted. Tuberculosis screening: No symptoms or risk factors identified. Fall Risk None identified. Assessment: 21:35 General: Appears in no apparent distress. comfortable, Behavior is calm, cooperative, ca1 appropriate for age. Pain: Denies pain. Neuro: Level of Consciousness is awake, alert, obeys commands, Oriented to person, place, time, situation. Cardiovascular: Heart tones S1 S2 present Capillary refill < 3 seconds Patient's skin is warm and dry. Respiratory: Airway is patent Respiratory effort is even, unlabored, Respiratory pattern is regular, symmetrical, Breath sounds are clear bilaterally. GI: Abdomen is round non-distended, Bowel sounds present X 4 quads. Abd is soft and non tender X 4 quads. Reports nausea, vomiting. : No deficits noted. No signs and/or symptoms were reported regarding the genitourinary system. EENT: No deficits noted. No signs and/or symptoms were reported regarding the EENT system. Derm: Skin is intact, is healthy with good turgor, Skin is pink, warm \\T\\ dry. Musculoskeletal: Circulation, motion, and sensation intact. Capillary refill < 3 seconds, Range of motion: intact in all extremities. 22:33 Reassessment: Patient appears in no apparent distress at this time. Patient and/or ca1 family updated on plan of care and expected duration. Pain level reassessed. Patient is alert, oriented x 3, equal unlabored respirations, skin warm/dry/pink. Vital Signs: 21:32 BP 124 / 92; Pulse 89; Resp 16 S; Temp 98.4(O); Pulse Ox 99% on R/A; Weight 74.39 kg jd3 (R); Height 5 ft. 5 in. (165.10 cm) (R); Pain 9/10; 23:51 BP 121 / 86; Pulse 81; Resp 17; Temp 98; Pulse Ox 99% on R/A; rv 21:32 Body Mass Index 27.29 (74.39 kg, 165.10 cm) jd3 ED Course: 21:25 Patient arrived in ED. ds1 21:29 Raquel Eller FNP-C is PHCP. snw 21:29 Chet Rangel MD is Attending Physician. snw 21:31 Triage completed. jd3 21:32 Arm band placed on. jd3 21:35 Akila Beckham, SENAIT is Primary Nurse. ca1 21:35 Patient has correct armband on for positive identification. Bed in low position. Call ca1 light in reach. Side rails up X 1. Pulse ox on. NIBP on. Warm blanket given. 21:35 No provider procedures requiring assistance completed. ca1 22:43 Inserted saline lock: 22 gauge in left forearm, using aseptic technique. Blood rv collected. 23:52 IV discontinued, intact, bleeding controlled, No redness/swelling at site. Pressure rv dressing applied. Administered Medications: 21:50 Drug: CarafATE 1 grams Route: PO; ca1 22:29 Follow up: Response: No adverse reaction ca1 22:43 Drug: NS 0.9% 1000 ml Route: IV; Rate: 1 bolus; Site: left forearm; rv 23:51 Follow up: IV Status: Completed infusion; IV Intake: 1000ml rv 23:08 Drug: Rocephin 1 grams Route: IV; Rate: calculated rate; Site: left antecubital; ca1 23:50 Follow up: IV Status: Completed infusion rv Intake: 23:51 IV: 1000ml; Total: 1000ml. rv Outcome: 23:45 Discharge ordered by . snw 23:51 Discharged to home ambulatory. rv 23:51 Condition: good 23:51 Discharge instructions given to patient, Instructed on discharge instructions, follow up and referral plans. medication usage, Demonstrated understanding of instructions, follow-up care, medications, Prescriptions given X 1. 23:52 Patient left the ED. rv Signatures: Raquel Eller, CREAM BEATER-C CREAM BEATER-CsnPratibha Clement ds1 Jethro Antonio RN RN jTheodore Malhotra RN RN rv Akila Beckham RN RN ca1 Corrections: (The following items were deleted from the chart) 21:35 21:30 Presenting complaint: Patient states: "for the past 3 days I have had trouble jd3 keeping food down and today I started having problems keeping water down and being nauseous. I am 9 weeks ." jd3
--- NOTE | 2019-02-10 23:47 | EDPHYS ---
Physician Documentation [facility] Name: Masha Martinez Age: 18 yrs Sex: Female : 2000 Arrival Date: 02/10/2019 Time: 21:25 Bed 24 Private MD: ED Physician Chet Rangel HPI: 02/10 22:00 This 18 yrs old Other Female presents to ER via Ambulatory with complaints of Nausea - snw 9 Wks Preg. 22:00 The patient presents to the emergency department with nausea, vomiting. Onset: The snw symptoms/episode began/occurred gradually, 1 week(s) ago, and became persistent. Possible causes: . The symptoms are aggravated by nothing. The symptoms are alleviated by nothing. Associated signs and symptoms: The patient has no apparent associated signs or symptoms. Severity of symptoms: At their worst the symptoms were moderate in the emergency department the symptoms are unchanged. The patient has experienced a previous episode. 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 No relief. , but the patient's symptoms have persisted. Historical: - Allergies: 21:32 No Known Allergies; jd3 - Home Meds: 21:32 None [Active]; jd3 - PMHx: 21:32 None; jd3 - PSHx: 21:32 None; jd3 - Immunization history:: Adult Immunizations up to date. - Social history:: Smoking status: Patient/guardian denies using tobacco. - Ebola Screening: : Patient negative for fever greater than or equal to 101.5 degrees Fahrenheit, and additional compatible Ebola Virus Disease symptoms. ROS: 22:00 Constitutional: Negative for fever, chills, and weight loss, Eyes: Negative for injury, snw pain, redness, and discharge, ENT: Negative for injury, pain, and discharge, Neck: Negative for injury, pain, and swelling, Cardiovascular: Negative for chest pain, palpitations, and edema, Respiratory: Negative for shortness of breath, cough, wheezing, and pleuritic chest pain, Back: Negative for injury and pain, : Negative for injury, bleeding, discharge, and swelling, MS/Extremity: Negative for injury and deformity, Skin: Negative for injury, rash, and discoloration, Neuro: Negative for headache, weakness, numbness, tingling, and seizure. 22:00 Abdomen/GI: Positive for nausea, vomiting. Exam: 22:00 Constitutional: This is a well developed, well nourished patient who is awake, alert, snw and in no acute distress. Head/Face: Normocephalic, atraumatic. Eyes: Pupils equal round and reactive to light, extra-ocular motions intact. Lids and lashes normal. Conjunctiva and sclera are non-icteric and not injected. Cornea within normal limits. Periorbital areas with no swelling, redness, or edema. ENT: Nares patent. No nasal discharge, no septal abnormalities noted. Tympanic membranes are normal and external auditory canals are clear. Oropharynx with no redness, swelling, or masses, exudates, or evidence of obstruction, uvula midline. Mucous membranes moist. Neck: Trachea midline, no thyromegaly or masses palpated, and no cervical lymphadenopathy. Supple, full range of motion without nuchal rigidity, or vertebral point tenderness. No Meningismus. Chest/axilla: Normal chest wall appearance and motion. Nontender with no deformity. No lesions are appreciated. Cardiovascular: Regular rate and rhythm with a normal S1 and S2. No gallops, murmurs, or rubs. Normal PMI, no JVD. No pulse deficits. Respiratory: Lungs have equal breath sounds bilaterally, clear to auscultation and percussion. No rales, rhonchi or wheezes noted. No increased work of breathing, no retractions or nasal flaring. Abdomen/GI: Soft, non-tender, with normal bowel sounds. No distension or tympany. No guarding or rebound. No evidence of tenderness throughout. Back: No spinal tenderness. No costovertebral tenderness. Full range of motion. Skin: Warm, dry with normal turgor. Normal color with no rashes, no lesions, and no evidence of cellulitis. MS/ Extremity: Pulses equal, no cyanosis. Neurovascular intact. Full, normal range of motion. Neuro: Awake and alert, GCS 15, oriented to person, place, time, and situation. Cranial nerves II-XII grossly intact. Motor strength 5/5 in all extremities. Sensory grossly intact. Cerebellar exam normal. Normal gait. Psych: Awake, alert, with orientation to person, place and time. Behavior, mood, and affect are within normal limits. Vital Signs: 21:32 BP 124 / 92; Pulse 89; Resp 16 S; Temp 98.4(O); Pulse Ox 99% on R/A; Weight 74.39 kg jd3 (R); Height 5 ft. 5 in. (165.10 cm) (R); Pain 9/10; 23:51 BP 121 / 86; Pulse 81; Resp 17; Temp 98; Pulse Ox 99% on R/A; rv 21:32 Body Mass Index 27.29 (74.39 kg, 165.10 cm) jd3 MDM: 21:44 Patient medically screened. snw 23:45 Data reviewed: vital signs, nurses notes. Data interpreted: Pulse oximetry: on room air snw is 99 %. Interpretation: normal. Counseling: I had a detailed discussion with the patient and/or guardian regarding: the historical points, exam findings, and any diagnostic results supporting the discharge/admit diagnosis, the presence of at least one elevated blood pressure reading (>120/80) during this emergency department visit, lab results, the need for outpatient follow up, to return to the emergency department if symptoms worsen or persist or if there are any questions or concerns that arise at home. Special discussion: Based on the history and exam findings, there is no indication for further emergent testing or inpatient evaluation. I discussed with the patient/guardian the need to see the OB Gyne specialist for further evaluation of the symptoms. 08 21:31 Order name: Urine Culture snw 02/10 21:31 Order name: Urine Microscopic Only; Complete Time: 22:58 snw 02/10 22:02 Order name: Urine Dipstick--Ancillary (enter results); Complete Time: 22:25 ag4 02/10 21:31 Order name: Urine Test (obtain specimen); Complete Time: 22:00 snw 02/10 21:31 Order name: Urine Dipstick-Ancillary (obtain specimen); Complete Time: 22:00 snw Administered Medications: 21:50 Drug: CarafATE 1 grams Route: PO; ca1 22:29 Follow up: Response: No adverse reaction ca1 22:43 Drug: NS 0.9% 1000 ml Route: IV; Rate: 1 bolus; Site: left forearm; rv 23:51 Follow up: IV Status: Completed infusion; IV Intake: 1000ml rv 23:08 Drug: Rocephin 1 grams Route: IV; Rate: calculated rate; Site: left antecubital; ca1 23:50 Follow up: IV Status: Completed infusion rv Disposition: 02/11 03:22 Co-signature as Attending Physician, Chet Rangel MD. Disposition: 02/10/19 23:45 Discharged to Home. Impression: state, Urinary tract infection, site not specified. - Condition is Stable. - Discharge Instructions: Nausea and Vomiting, Adult, First Trimester of , and Urinary Tract Infection, Rehydration, Adult. - Prescriptions for Macrobid 100 mg Oral Capsule - take 1 capsule by ORAL route every 12 hours for 10 days; 20 capsule. - Medication Reconciliation Form, Thank You Letter, Antibiotic Education, Prescription Opioid Use form. - Follow up: Private Physician; When: 2 - 3 days; Reason: Recheck today's complaints, Continuance of care, Re-evaluation by your physician. Follow up: Emergency Department; When: As needed; Reason: Worsening of condition. Signatures: Dispatcher [employer] EDMS Raquel Eller, NORA-C CRANE LADLE PERSON-Csnw Chet Rangel MD MD Jethro Antonio RN RN Theodore Abrams RN RN rv Akila Beckham RN RN ca1 Corrections: (The following items were deleted from the chart) 02/10 23:52 23:45 02/10/2019 23:45 Discharged to Home. Impression: state; Urinary tract rv infection, site not specified. Condition is Stable. Discharge Instructions: Nausea and Vomiting, Adult, First Trimester of , and Urinary Tract Infection, Rehydration, Adult. Prescriptions for Macrobid 100 mg Oral Capsule - take 1 capsule by ORAL route every 12 hours for 10 days; 20 capsule. and Forms are Medication Reconciliation Form, Thank You Letter, Antibiotic Education, Prescription Opioid Use. Follow up: Private Physician; When: 2 - 3 days; Reason: Recheck today's complaints, Continuance of care, Re-evaluation by your physician. Follow up: Emergency Department; When: As needed; Reason: Worsening of condition. snw
[2019-02-10 23:58] VITALS: O2SAT 99
[2019-02-10 23:59] VITALS: BP 121/86; TEMP 98
== END 2019-02-10 23:52 | disposition home or self-care (01) ==
LOC: ER 21:22
DX: O23.41 Unspecified infection of urinary tract in pregnancy, first trimester (principal); Z3A.09 9 weeks gestation of pregnancy
CPT/HCPCS: 96365; 87088; 87086; 99284; J0696; J7030; 81003; 81015

== ENCOUNTER 2020-11-02 05:03 | Emergency (ER) | payer BC, OTHER ==
--- OUTSIDE RECORDS SUMMARY | 2020-11-02 05:05 | XMS REPORT | Continuity of Care Document ---
:2000 Author Organization [facility] t Address [address] [place] [id number] Care Team Providers Name Role Phone Prabha Merlos MD Attending Clinician Problems This patient has no known problems. Allergies, Adverse Reactions, Alerts This patient has no known allergies or adverse reactions. Medications This patient has no known medications. Procedures This patient has no known procedures. Encounters Start End Encounter Admission Attending Care Care Encounter Source Date/Time Date/Time Type Type Clinicians Facility Department ID 2020-04-27 2020-04-27 Office BRAYAN Merlos [id number] 25 15:29:08 16:11:03 Visit Althea Mayer [id number] [place] [id number] Codie [id number] [facility] [address] [facility] Results This patient has no known results.
[2020-11-02 07:17] LABS: Urine Blood 2+ (Negative); Urine Glucose Negative (Negative); Urine Protein Negative (Negative); Urine Specific Gravity 1.025 (1.005-1.030)
--- NOTE | 2020-11-02 07:34 | ER ---
Nurse's Notes [facility] Name: Masha Martinez Age: 20 yrs Sex: Female : 2000 Arrival Date: 11/02/2020 Time: 05:08 Bed Waiting Private MD: Diagnosis: Presentation: 11/02 05:18 Chief complaint: Patient states: she is having really bad cramping pain in her lower bb abdomen she thought it was really bad menstrual cramps but the clifford is still here, denies burning with urination, denies vomiting or diarrhea. Coronavirus screen: At this time, the client does not indicate any symptoms associated with coronavirus-19. Ebola Screen: No symptoms or risks identified at this time. Initial Sepsis Screen: Does the patient meet any 2 criteria? No. Patient's initial sepsis screen is negative. Does the patient have a suspected source of infection? No. Patient's initial sepsis screen is negative. Risk Assessment: Do you want to hurt yourself or someone else? Patient reports no desire to harm self or others. Onset of symptoms was October 27, 2020. 05:18 Method Of Arrival: Ambulatory bb 05:18 Acuity: SILVER 3 bb Triage Assessment: 05:21 General: Appears in no apparent distress. Behavior is calm, cooperative. Pain: bb Complains of pain in abdomen Pain currently is 8 out of 10 on a pain scale. Neuro: Level of Consciousness is awake, alert, obeys commands, Oriented to person, place, time, situation. Cardiovascular: No deficits noted. Respiratory: Respiratory effort is even, unlabored, Respiratory pattern is regular. GI: Abdomen is non-distended, Reports lower abdominal pain. Derm: Skin is pink, warm \T\ dry. Musculoskeletal: Circulation, motion, and sensation intact. KILN PUSHER: 05:21 LMP 10/25/2020 bb Historical: - Allergies: 05:21 No Known Allergies; bb - Home Meds: 05:21 None [Active]; bb - PMHx: 05:21 None; bb - PSHx: 05:21 None; bb - Immunization history:: Adult Immunizations up to date. - Social history:: Smoking status: Patient denies any tobacco usage or history of. Vital Signs: 05:18 BP 113 / 79; Pulse 75; Resp 16 S; Temp 98.7(O); Pulse Ox 96% on R/A; Weight 64.86 kg bb (R); Height 5 ft. 0 in. (152.40 cm) (R); Pain 8/10; 05:18 Body Mass Index 27.93 (64.86 kg, 152.40 cm) bb ED Course: 05:08 Patient arrived in ED. es 05:21 Triage completed. bb 05:21 Arm band placed on Patient placed in waiting room, Patient notified of wait time. bb 07:33 Patient's name was called from ER lobby. No response. Unable to locate patient. Will bb disposition as left without being seen by a provider. Administered Medications: No medications were administered Outcome: 07:34 Patient left the ED. bb Signatures: Sanjuana Dao Brenda, RN RN bb
[2020-11-02 07:38] VITALS: BP 113/79; TEMP 98.7; O2SAT 96
== END 2020-11-02 07:34 | disposition left against medical advice (07) ==
LOC: ER 05:03
DX: Z53.21 Procedure and treatment not carried out due to patient leaving prior to being seen by health care provider (principal)
CPT/HCPCS: 81003; 99281